=== PATIENT | female | born 1955 | race American Indian/Alaskan Native ===

== ENCOUNTER 2017-05-07 14:07 | Outpatient (CLI) | payer OTHER ==
--- NOTE | 2017-05-07 15:05 | Mammography Report ---
Screening mammogram: Routine views demonstrates an intermediate density pattern bilaterally with scattered small nodular densities throughout both breasts. No significant calcifications. When compared to prior examination in August 2015 and no significant changes. CAD used. Impression: Stable breast pattern. Recommendation: Annual mammogram followup. BI-RADS CATEGORY: 1 = Negative ACR BI-RADS MAMMOGRAPHIC CODES: 0 = Needs additional imaging evaluation; 1 = Negative; 2 = Benign; 3 = Probably benign; 4 = Suspicious; 5 = Malignant; 6 = Known biopsy-proven malignancy COMMENT: 1. Dense breast tissue, i.e., adenosis, fibrocystic changes, etc., may obscure an underlying neoplasm. 2. Approximately 10% of cancers are not detected with mammography. 3. A negative mammography report should not delay biopsy if a clinically suspicious mass is present.
== END 2017-05-07 14:08 | disposition home or self-care (01) ==
LOC: SPVWC 14:07
PROVIDERS: ATTEND Family Medicine Adult Medicine
DX: Z12.31 Encounter for screening mammogram for malignant neoplasm of breast (principal)
CPT/HCPCS: 77067

== ENCOUNTER 2017-05-23 13:18 | Outpatient (CLI) | payer OTHER ==
--- NOTE | 2017-05-23 21:09 | XRay Report ---
FINAL REPORT EXAM: XR KNEE 4+V LT HISTORY: LEFT KNEE PAIN TECHNIQUE: Four views left knee Comparison: None FINDINGS: Normal bony mineralization. No fracture or dislocation. No suprapatellar bursal effusion. No significant patellofemoral degenerative change. No tibial spine blunting. No chondrocalcinosis. Normal location of the patella. There is either superior patellar pole enthesophyte or an artifactual hyperdense lesion in this location. IMPRESSION: Superior patellar pole enthesophyte versus artifact. Otherwise normal left knee.
== END 2017-05-23 13:19 | disposition home or self-care (01) ==
LOC: SPVIMAG 13:18
PROVIDERS: ATTEND Orthopaedic Surgery Sports Medicine
DX: M25.562 Pain in left knee (principal)

== ENCOUNTER 2017-08-16 07:49 | Outpatient (CLI) | payer OTHER ==
--- NOTE | 2017-08-16 08:18 | XRay Report ---
Lumbar spine 3 views: History: Lumbar pain. Findings: Normal height of vertebral bodies and intervertebral disc. Sclerotic articular surfaces with peripheral osteophytes suggestive of early degenerative changes. No fracture or soft tissue calcification. Impression: Early degenerative changes lumbar spine.
== END 2017-08-16 07:50 | disposition home or self-care (01) ==
LOC: SPVIMAG 07:49
PROVIDERS: ATTEND Orthopaedic Surgery Sports Medicine
DX: M47.896 Other spondylosis, lumbar region (principal)
CPT/HCPCS: 72100

== ENCOUNTER 2018-05-08 11:01 | Outpatient (CLI) | payer OTHER ==
--- NOTE | 2018-05-08 14:51 | Mammography Report ---
BILATERAL DIGITAL SCREENING MAMMOGRAM with CAD: 05/08/18 11:01:00 CLINICAL: Routine screening. COMPARISON:05/07/17 FINDINGS: The breasts are heterogeneously dense, which may obscure small masses. No mass, architectural distortion or suspicious calcifications. IMPRESSION: No mammographic evidence of malignancy. BI-RADS CATEGORY: 1 - - Negative RECOMMENDATION: Routine mammographic screening in one year. COMMENT: Patient follow-up letters are generated by our [employer] application.
== END 2018-05-08 11:02 | disposition home or self-care (01) ==
LOC: SPVWC 11:01
PROVIDERS: ATTEND Family Medicine Adult Medicine
DX: Z12.31 Encounter for screening mammogram for malignant neoplasm of breast (principal)
CPT/HCPCS: 77067